=== PATIENT | female | born 1950 | race Caucasian/White ===

== ENCOUNTER → 2016-10-20 | Outpatient (CLI) | payer OTHER ==
[~2016-10-20] MED LIST: ASPI81TA28 PO; CALC200T PO; CEPH500C PO; CHOL200010 PO; CHOL20005 PO; DILT30TA PO; VITA10004 PO
--- NOTE | 2016-10-20 11:36 | DIAGNOSTIC IMAGING REPORT ---
RIGHT HAND MIN 3 VIEWS ROUTINE CLINICAL HISTORY: Right hand pain COMPARISON: None. DISCUSSION: The bones are mildly osteopenic. No acute fractures are visualized. There are erosive osteoarthritic changes at the level of the proximal to phalangeal joint of fourth finger and distal interphalangeal joint of the fifth finger. There are moderate osteoarthritic changes the level the first carpal metacarpal joint. IMPRESSION: 1. Erosive osteoarthritic changes 2. No acute fractures Electronically signed by: José Luis Madrigal M.D. 10/20/2016 11:35 AM
--- NOTE | 2016-10-20 11:40 | DIAGNOSTIC IMAGING REPORT ---
LEFT HAND MIN 3 VIEWS ROUTINE CLINICAL HISTORY: M19.90 Arthritis pain COMPARISON: None DISCUSSION: Severe degenerative change first carpometacarpal joint. Severe degenerative change proximal interphalangeal joint fourth finger. Erosive changes of the margins of the osseous structures involved. Mild degenerative change of all remaining osseous structures. No significant periarticular osteopenia. 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 Electronically signed by: Jemal Victoria M.D. 10/20/2016 11:38 AM
[2016-10-20 12:13] LABS: BASO % 0.8 %; BASO ABS # 0.05 K/uL (0-0.2); COMPLETE YES; EOS % 0.8 %; HEMATOCRIT 38.5 % (37-47); IG% 0.3 %; LYMPH % 35.3 %; LYMPH ABS # 2.09 K/uL (1.2-3.4); MEAN CELL VOLUME 89.7 fL (80-100); MEAN CORPUSCULAR HEMOGLOBIN 30.3 pg (25-34); MEAN CORPUSCULAR HGB CONC 33.8 g/dl (32-36); MEAN PLATELET VOLUME 9.8 fL (7.4-10.4); MONO % 7.9 %; NEUT % 54.9 %; PLATELET COUNT 275 K/uL (130-400); RED BLOOD COUNT 4.29 M/uL (4.2-5.4); WHITE BLOOD COUNT 5.92 K/uL (4.8-10.8)
[2016-10-20 12:24] LABS: ALT/SGPT 24 U/L (12-78); BLOOD UREA NITROGEN 10 mg/dl (7-18); BUN/CREATININE RATIO 14.6 (10-20); C-REACTIVE PROTEIN < 0.29 mg/dl (0-0.29); CALCIUM 9.4 mg/dl (8.5-10.1); CARBON DIOXIDE 29 mmol/L (21-32); CHLORIDE 103 mmol/L (98-107); GLUCOSE 66 mg/dl (70-99); POTASSIUM 3.8 mmol/L (3.5-5.1); RHEUMATOID FACTOR < 10.0 U/mL (0-15); SODIUM 139 mmol/L (136-145); URIC ACID 2.5 mg/dl (2.6-7.2)
[2016-10-20 12:33] LABS: ALB/GLOB RATIO 1.3 (0.9-2); ALKALINE PHOSPHATASE 54 U/L (45-117); AST/SGOT 29 U/L (15-37)
[2016-10-20 14:46] LABS: LYME DISEASE AB IGG NEG (NEG); LYME DISEASE AB IGM NEG (NEG)
[2016-10-22] LABS: CYCLIC CITRULLINATED PEPT IGG <16 UNITS (<20)
--- NOTE | 2016-10-28 09:18 | CODING QUERY MEDICAL NECESSITY ---
SUPPORTING DIAGNOSIS NEEDED A supporting diagnosis is required for the test/procedure performed on this patient in order for us to be reimbursed by the patient's insurance. Please provide a supporting diagnosis for the following test/procedure listed below next to the test name along with your signature. *If there is no additional diagnosis for this patient that would support the following test/procedure please document that below next to the test/procedure. Test(s)/Procedure(s) that require a supporting diagnosis: DOS 10/20 * Vitamin D DIAGNOSIS: * TSH DIAGNOSIS: Provider Signature: Date: Thank you Haven Marquez Health Information Management Once completed, please kindly fax back to [phone] For questions please call [phone]
== END | disposition home or self-care (01) ==
LOC: C.RAD 10:40
PROVIDERS: ATTEND Nurse Practitioner Family
DX: M19.90 Unspecified osteoarthritis, unspecified site (principal); M79.641 Pain in right hand

== ENCOUNTER → 2017-01-01 | Outpatient (CLI) | payer OTHER ==
[~2017-01-01] MED LIST changes: -CEPH500C PO
[2017-01-01 09:43] LABS: ALT/SGPT 20 U/L (12-78); BLOOD UREA NITROGEN 7 mg/dl (7-18); BUN/CREATININE RATIO 11.3 (10-20); CALCIUM 9.2 mg/dl (8.5-10.1); CARBON DIOXIDE 27 mmol/L (21-32); CHLORIDE 101 mmol/L (98-107); CHOLESTEROL 200 mg/dl (0-200); CREATININE 0.64 mg/dl (0.60-1.20); GLUCOSE 78 mg/dl (70-99); POTASSIUM 3.9 mmol/L (3.5-5.1); SODIUM 136 mmol/L (136-145); TRIGLYCERIDES 82 mg/dl (0-150); VERY LOW DENSITY LIPOPROT CALC 16 mg/dl
[2017-01-01 09:46] LABS: ALB/GLOB RATIO 1.6 (0.9-2); ALKALINE PHOSPHATASE 51 U/L (45-117); AST/SGOT 24 U/L (15-37); CHOLESTEROL/HDL RATIO 2.7; HDL CHOLESTEROL 73 mg/dl; LDL CHOLESTEROL CALCULATED 111 mg/dl
== END | disposition home or self-care (01) ==
LOC: C.LAB1850 08:01
PROVIDERS: ATTEND Nurse Practitioner Family
DX: E78.5 Hyperlipidemia, unspecified (principal)

== ENCOUNTER → 2017-01-11 | Outpatient (CLI) | payer OTHER ==
--- NOTE | 2017-01-11 14:27 | MAMMOGRAPHY REPORT ---
BILATERAL DIGITAL SCREENING MAMMOGRAM WITH CAD: 01/11/2017 CLINICAL HISTORY: Routine screening. Patient has no complaints. TECHNIQUE: Bilateral CC, MLO and repeat left MLO views were obtained. Current study was also evalua asael with a Computer Aided Detection (CAD) system. COMPARISON: Comparison is made to exams dated: 01/09/2016 mammogram, 01/04/2014 mammogram, 01/07/2015 mammogram, 01/03/2013 mammogram, 04/23/2011 mammogram, and 04/22/2010 mammogram - [facility] enter. BREAST COMPOSITION: The tissue of both breasts is heterogeneously dense, which may obscure small ma sses. FINDINGS: There are minimal vascular calcifications in the breasts. No suspicious mass, architectu ral distortion or cluster of suspicious microcalcifications is seen. IMPRESSION: ACR BI-RADS CATEGORY 1: NEGATIVE There is no mammographic evidence of malignancy. A 1 year screening mammogram is recommended. The p atient will receive written notification of the results. Approximately 10% of breast cancers are not detected with mammography. A negative mammographic repor t should not delay biopsy if a clinically suggestive mass is present. Neli Workman M.D. ay/:01/11/2017 13:15:36 Milling Machine Operator Gear: Marti GREEN(R)(M), [facility] letter sent: Normal 1/2 BI-RADS Code: ACR BI-RADS Category 1: Negative
== END | disposition home or self-care (01) ==
LOC: C.MAMM 09:31
PROVIDERS: ATTEND Family Medicine
DX: Z12.31 Encounter for screening mammogram for malignant neoplasm of breast (principal)

== ENCOUNTER 2017-02-04 08:08 | Observation (INO) | payer OTHER ==
[2017-02-04] VITALS (11 sets, daily range): BP systolic 101–143; BP diastolic 63–87; PULSE 48–81; TEMP 36.3–36.8; O2SAT 94–99; Ht 154.9 cm; Wt 48.0 kg
[~2017-02-04] VITALS: Ht 154.9 cm; Wt 48.0 kg
[~2017-02-04 08:08] MED LIST changes: -CHOL20005 PO
--- NOTE | 2017-02-04 11:27 | History & Physical Bridge Note ---
H&P Re-Evaluation Bridge Note: I have examined the patient, reviewed the History & Physical and in the interval since the performance of the History & Physical I have noted the following changes of clinical significance: No changes noted. I reviewed the indications, procedure, risks and alternatives of electrophysiology study and ablation with her and she understands and agrees to proceed. I included risks of possible pacemaker implantation as well as other risks. Consent obtained.
--- NOTE | 2017-02-04 11:27 | Procedure Note ---
Pre-Mod Sedation Assessment General Date of Moderate Sedation: Feb 04, 2017. Review Cardiovascular: regular rate, rhythm Abdomen: normal bowel sounds Lungs: lungs clear Pre-Sedation Airway Assessment Smoking Status: Never Smoker Procedure Planning Contraindications-for Mod Sed: None Yes Notes The planned sedation has been discussed with the patient and consent obtained. I have identified the patient, determined the appropriateness of sedation and have assessed the patient immediately prior to the procedure. All medicine(s) and interventions are by my order.
[2017-02-04] MEDS ORDERED: FENTANYL CITRATE INJ 50 MCG/1 ML 2 ML VIAL ONE ×2 (11:51→12:29)
[2017-02-04] MEDS ORDERED: MIDAZOLAM HCL 5 MG/ML 1 ML VIAL ONE ×2 (11:51→12:29)
[2017-02-04] MEDS ORDERED: IBUTILIDE FUMARATE 0.1 MG/ML 10 ML VIAL ONE (12:48)
[2017-02-04] MEDS ORDERED: ATROPINE SULFATE 0.1 MG/ML 10 ML SYR ONE (13:31)
--- NOTE | 2017-02-04 14:19 | Procedure Note ---
Post-Mod Sedation Assessment General Date of Moderate Sedation Feb 04, 2017. Vital Signs: Vital Signs Past 12 Hours Date Time Temp Pulse Resp B/P Pulse Ox O2 Delivery O2 Flow Rate FiO2 02/04/17 14:15 85 16 128/74 96 Room Air 02/04/17 14:10 88 16 130/88 96 Room Air 02/04/17 14:00 90 16 136/87 96 Room Air 02/04/17 13:50 113 16 111/87 96 Room Air 02/04/17 11:21 36.5 54 16 122/69 96 Room Air Review - Discharge Criteria Vital Signs Stable: Yes Alert/Oriented/Conversant: Yes Returned to Baseline Mental St: Yes Nausea Absent/Minimal: Yes Pain/Discomfort/Absent/Minimal: Yes Normal/Baseline Respirations: Yes Active Bleeding?: No
--- NOTE | 2017-02-04 14:22 | Cardiology Procedure Brief Nt ---
Preliminary Cardiology Note Procedure Date Feb 04, 2017. Pre-Procedure Diagnosis SVT Post-Procedure Diagnosis typical AV amrik reentry Procedure(s) Performed Baseline electrophysiologic study Corvert administration for atrial fibrillation Atropine administration for inducibility Ablation slow pathway Lumber Yard Worker Dr. Johnson Director Of Research(s) none Estimated Blood Loss 5 cc Preliminary Findings Typical AV amrik reentry, however induction was somewhat inconsistent and amrik pathways were not clearly evident. She also had easily inducible atrial fibrillation requiring Corvert. All of this makes the success of the procedure are little bit uncertain but ablation was performed. Recommendations Monitor overnight Specimens None Anesthesia local with sedation Complication(s) None Disposition PCU
[2017-02-04] MEDS ORDERED: KETOROLAC TROMETHAMINE 10 MG TAB PO PRN (14:30)
[2017-02-04] MEDS ORDERED: ACETAMINOPHEN 325 MG TAB PO PRN (14:30)
[2017-02-04] MEDS ORDERED: IV FLUIDS COMPLETED PRN (15:00)
[2017-02-05] VITALS: O2SAT 97
[2017-02-05 04:00] VITALS: BP 109/53; PULSE 52; TEMP 36.6; O2SAT 95
--- NOTE | 2017-02-05 08:49 | Discharge Instructions ---
Discharge Instructions Date of Service Feb 05, 2017. Admission Supraventricular tachycardia Discharge Discharge Diagnosis / Problem: SVT ablation Discharge Goals Goal(s): Improve disease control Activity Recommendations Activity Limitations: as noted below ACTIVITY RECOMMENDATIONS: * You may shower/bathe in 1 day. MEDICATIONS: * Tylenol, as directed, for discomfort. SPECIAL CARE INSTRUCTIONS: * If bleeding occurs, apply direct pressure to area for 5 minutes. * Call your doctor if you have severe pain, fever, drainage or bleeding at site. * Keep any scheduled doctor's appointment. SKIN IRRITATION: * You may experience some redness and/or swelling in the area where radiation was administered. If any skin irritation occurs, please contact your family physician. FOLLOW UP VISIT: 03/18/17 @ 10:[address] Johnson . Current Hospital Diet Patient's current hospital diet: Vegetarian Diet Discharge Diet Recommended Diet: Vegetarian Diet Pending Studies Studies pending at discharge: no Laboratory Results Lipid Panel Test 01/01/17 08:03 Range/Units Triglycerides Level 82 0-150 mg/dl Cholesterol Level 200 0-200 mg/dl HDL Cholesterol 73 mg/dl Cholesterol/HDL Ratio 2.7 LDL Cholesterol, Calculated 111 mg/dl Medical Emergencies . Who to Call and When: Medical Emergencies: If at any time you feel your situation is an emergency, please call 911 immediately. . Non-Emergent Contact Non-Emergency issues call your: Braiding Operator . . "Provider Documentation" section prepared by Neli Butler. . VTE Core Measure Inpt VTE Proph given/why not?: Treatment not indicated
[2017-02-05] MEDS ORDERED: ASPIRIN 81 MG ECTAB PO SCH (09:00)
[2017-02-05 10:01] VITALS: BP 109/53; PULSE 52; TEMP 36.6; O2SAT 95
--- NOTE | 2017-02-05 11:08 | Discharge Summary ---
Discharge Summary Admission Date: Feb 04, 2017 at 14:25 Discharge Date: Feb 05, 2017 Discharge Disposition: Home Primary Diagnosis: SVT Secondary Diagnoses/Problems: Medical Problems: (1) SVT (supraventricular tachycardia) Status: Acute Procedures: SVT ablation Discharge Instructions Last Recorded Wt (Kilograms): 48.000 Activity Recommendations: limitations as noted below Diet At Discharge: resume previous diet Allergies: Coded Allergies: Erythromycin (Unverified Allergy, Severe, NAUSEATED, 06/28/16) Additional Instructions: ACTIVITY RECOMMENDATIONS: * You may shower/bathe in 1 day. MEDICATIONS: * Tylenol, as directed, for discomfort. SPECIAL CARE INSTRUCTIONS: * If bleeding occurs, apply direct pressure to area for 5 minutes. * Call your doctor if you have severe pain, fever, drainage or bleeding at site. * Keep any scheduled doctor's appointment. SKIN IRRITATION: * You may experience some redness and/or swelling in the area where radiation was administered. If any skin irritation occurs, please contact your family physician. FOLLOW UP VISIT: Keep any scheduled doctor appointments. Special Care: Call your doctor if: * Temperature above 101 degrees * Pain not relieved by pain medicine ordered * There is increased drainage or redness from any incision * You have any unanswered questions or concerns. Avoid all tobacco products. If you need help to stop smoking, call [place]'s FREE QUITLINE at . This is a free call. Admission HPI This is a very pleasant 66-year-old woman who has a long history of palpitations although the cause was more recently identified. She describes a quite classic paroxysmal tachycardia, she believes this started about 10-15 years ago although when it first occurred it was infrequent and self terminating. The episodes however were quite long, typically they lasted hours, sometimes she will go to bed and it would disappear during the night and she would wake up in normal rhythm. She tolerated the arrhythmia quite well, she was aware of it and felt a little tired but did not have presyncope with it. More recently however the episodes have become more frequent and more difficult for her to tolerate. She had a prolonged episode on 03/21/2016, that lasted perhaps 4 hours and she wasn't feeling well so she came into the emergency room where on vital signs her heart rate is recorded as 126 bpm and her blood pressure was 116/76 when initially recorded. A 12-lead electrocardiogram was obtained which suggests typical AV amrik reentry and adenosine was used to terminate the arrhythmia (the actual termination doesn't appear to be recorded) . After termination her electrocardiogram was normal. She has tried medical therapy, after her visit to the emergency room in March 2016 she was started on metoprolol succinate which she did not tolerate at all, she felt very dizzy and had a headache with it. I believe this was switched to metoprolol tartrate with similar results. She was then started on diltiazem 15 mg twice a day (half of a 30 mg tablet) on 05/14/2016, this cause similar symptoms and she wasn't able to tolerated and discontinued it. She has continued to have episodes, she had 2 episodes in December, 1 was 1-2 hours and was not very bothersome to her. The other episode lasted about 4 hours , it was worse than some of her prior episodes and should considered coming to the emergency room but it was at a time of bad weather and she didn't want to have anyone bring her in. She didn't check her blood pressure with a cough and it was 106, the heart rate is probably erroneous although she did get 126 at one point during that arrhythmia. Otherwise she has no cardiovascular complaints. 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 She did have a stress echo done on 08/07/2016 where she reached 89 % of her predicted heart rate and it was negative for ischemia. Her baseline echo was unremarkable. Admission Physical Exam Additional Comments: Constitutional: Alert, cooperative and in no distress. HEENT: Unremarkable Neck: No jugular venous distention, carotid pulses are normal and equal bilaterally without bruits. Pulmonary: Clear to auscultation bilaterally. Cardiac: Regular rhythm with no murmur, gallop or rub. Abdomen: Soft, nontender with normal bowel sounds. Extremities: No edema. Distal pulses intact. Neurologic: No focal findings. Gait is steady. Skin: No rash, ecchymoses or petechiae. Hospital Course Patient is a 66-year-old female who underwent SVT ablation on 02/04/[address] Johnson. She tolerated the procedure well and was deemed stable for discharge home the following day. Her Diltiazem was discontinued prior to discharge. She will have follow-up in [address] Johnson as an outpatient. Total time spent on discharge = This includes examination of the patient, discharge planning, medication reconciliation, and communication with other providers.
--- NOTE | 2017-02-06 07:10 | Cardiology Follow-Up ---
Subjective Date of Service: Feb 05, 2017. Pt evaluation today including: conversation w/ patient, physical exam, lab review, review of studies, review of inpatient medication list History of Present Illness Doing well post-electrophysiologic procedure yesterday. Minor groin discomfort. Ambulating without difficulty. No chest discomfort or palpitations. Social History Smoking Status: Never Smoker History of Alcohol Use: No Review of Systems Respiratory: No dyspnea on exertion, No shortness of breath Cardiac: No chest pain, No palpitations Objective Last Recorded Weight-Kilograms: 48.000 Physical Exam Constitutional: General Apperance: heathly-appearing Level of Distress: NAD Lungs: Auscultation: breath sounds normal Cardiovascular: Heart Auscultation: RRR, no rubs Extremities: no edema Right and left groin access sites are clean and dry, no hematoma. Minor tenderness. Data EKG: Postprocedure sinus rhythm with normal UT interval. Telemetry reviewed: Sinus rhythm, no arrhythmia. Assessment and Plan #1. SVT: Doing well post-ablation, no groin difficulty evident, no arrhythmia. Stable for discharge to outpatient follow-up. Procedures: SVT ablation
== END 2017-02-05 10:38 | disposition home or self-care (01) ==
LOC: C.EP 08:08 → C.2T 14:25
PROVIDERS: ADMIT Internal Medicine Cardiovascular Disease; ATTEND Internal Medicine Cardiovascular Disease
DX: I47.1 Supraventricular tachycardia (principal); E78.5 Hyperlipidemia, unspecified; Z98.890 Other specified postprocedural states; Z79.82 Long term (current) use of aspirin; Z88.1 Allergy status to other antibiotic agents; Z82.3 Family history of stroke; Z82.49 Family history of ischemic heart disease and other diseases of the circulatory system; Z82.62 Family history of osteoporosis; Z83.42 Family history of familial hypercholesterolemia

== ENCOUNTER 2017-03-05 17:30 | Emergency (ER) | payer OTHER ==
[~2017-03-05] VITALS: Ht 154.9 cm; Wt 49.3 kg
[~2017-03-05 17:30] MED LIST changes: -DILT30TA PO
[2017-03-05 17:39] VITALS: TEMP 36.9; Ht 154.9 cm; Wt 49.3 kg
--- NOTE | 2017-03-05 17:59 | EMERGENCY ROOM VISIT NOTE ---
ED Visit Note First contact with patient: 17:44 I have personally seen and evaluated the patient with the physician product safety technical assistant. I agree with the diagnostic/management decisions and have personally been involved in these decisions and agree with the diagnosis.
[2017-03-05 18:09] VITALS: BP 131/69; PULSE 71; O2SAT 98
--- NOTE | 2017-03-06 15:15 | EMERGENCY ROOM VISIT NOTE ---
ED Visit Note First contact with patient: 17:44 Chief Complaint: Tick bite. History of Present Illness: Ms. Conteh is a 66-year-old white female who ambulates into the ED complaining of a tick bite over the left temporal area. She reports she noticed reddish lesion on Wednesday, 4 days ago. She initially thought it could be a tick bite or Lyme's disease related lesion; she reports she never saw a tick. Over the last 4 days she reports she thinks the lesion is becoming larger. She expressed concern to her who encouraged her to come to the ED for further evaluation and care. Patient reports she is not having any symptoms associated with this lesion. She has not had a taken any medication for this lesion. She denies any other similar lesions, fevers, chills, sweats, headaches, chest pain, shortness of breath, abdominal pain, nausea, vomiting, decreased appetite, joint pains. Review of Systems: As noted above in history of present illness. 8 body systems were reviewed and found to be negative as noted above. Past Medical History: Gastric ulcers, SVT, status post unspecified cyst removal and unspecified knee surgery. Current Medications: Allergies to Medications: Social History: Patient is currently retired and lives with her ; she feels safe in her home environment; she denies tobacco and alcohol use. Physical Examination: Vital Signs: Date Time Temp Pulse Resp B/P Pulse Ox O2 Delivery O2 Flow Rate FiO2 03/05/17 17:39 36.9 71 16 131/69 98 Room Air GENERAL: 66-year-old female in no acute distress, nontoxic-appearing, afebrile and hemodynamically stable. NEUROLOGICAL: Awake, alert and oriented to person, place and time. Answering questions appropriately and following commands. Normal gait. Good hand eye coordination. SKIN: Warm, dry and pink. Left Temporal Area: Patient has a 4-5 mm round mildly erythematous lesion that does not shabbir. It is slightly elevated consistent with a papule. There is no local erythema or edema. There is no lymphangitis. Lesion is not fluctuant. THORAX: Lungs sounds are clear to auscultation and equal bilaterally with symmetrical chest wall. ABDOMEN: Flat, soft and nontender. Positive bowel sounds in all quadrants. ED Course: Patient is assessed as noted above. Patient's case was reviewed with Dr. Delgadillo; we agreed on diagnostic approach, treatment, disposition and plan. Patient was educated about today's findings and instructed on her treatment plan ; she verbalizes understanding and agreement with this plan. Clinical Impression: Skin lesion to the face. Decision-Making: Initially my differential diagnosis I considered benign macro/ papule, skin cancer, insect bite and other causes. Disposition: Patient discharged home in stable condition; prior to departure she was reassessed and still reported she was pain and symptom-free. Plan: Patient was encouraged to continue to monitor her skin lesion. Patient was encouraged to contact her primary care provider for recheck. Patient was encouraged to return to the ED if the lesion enlarges, becomes more reddened or swollen, she develops fevers or other rashes to return to the ED.
== END 2017-03-05 18:09 | disposition home or self-care (01) ==
LOC: C.EDB 17:30 → C.EDD 18:09
DX: L98.9 Disorder of the skin and subcutaneous tissue, unspecified (principal)

== ENCOUNTER 2017-03-11 22:21 | Emergency (ER) | payer OTHER ==
[~2017-03-11] VITALS: Ht 154.9 cm; Wt 47.9 kg
[2017-03-11 22:30] VITALS: TEMP 36.6; Ht 154.9 cm; Wt 47.9 kg
[2017-03-11] MEDS ORDERED: DOXYCYCLINE HYCLATE 100 MG CAP PO STA (23:00)
[2017-03-11] MEDS ORDERED: CHOL20005 PO (23:06)
[2017-03-11 23:20] VITALS: BP 143/85; PULSE 63; O2SAT 100
--- NOTE | 2017-03-11 23:23 | EMERGENCY ROOM VISIT NOTE ---
History First contact with patient: 22:41 Chief Complaint: BITE Stated Complaint: TICK ON CALF OF LEFT LEG History of Present Illness The patient is a 66 year old female who presents to the Emergency Room with complaints of a tick bite. The tick is currently located over the lateral surface of the patients left ankle. The patient was outside yesterday until approximately 4pm and was gardening and outdoors for the majority of the day. She did not notice the tick this morning but does admit that she was rushing. Denies any pain in the area of the tick bite. Denies any fever, chills, headache , cough, or abdominal pain. Last tetanus shot was in 2016. Review of Systems See HPI for pertinent positives and negatives. A total of ten systems were reviewed and were otherwise negative. Past Medical/Surgical History Medical Problems: (1) Knee surgery (2) Paroxysmal SVT (supraventricular tachycardia) Family History FH: heart disease FHx: gallbladder disease Hypertension Social History Smoking Status: Never Smoker Alcohol Use: none Drug Use: none Marital Status: , in relationship Housing Status: lives with family Occupation Status: retired Current/Historical Medications Scheduled Aspirin (Aspirin Ec), 81 MG PO DAILY Calcium Carbonate-Vitamin D (Oscal 500/200 D-3), 2 TABS PO AMPM Cholecalciferol (Vitamin D3), 2,000 UNITS PO DAILY Vitamin E (Vitamin E), 2,000 INTER.UNIT PO DAILY Allergies Coded Allergies: Erythromycin (Verified Allergy, Severe, NAUSEATED, 03/11/17) Physical Exam Vital Signs Date Time Temp Pulse Resp B/P Pulse Ox O2 Delivery O2 Flow Rate FiO2 03/11/17 22:30 36.6 59 16 148/73 99 Room Air Physical Exam GENERAL: Awake, alert, well-appearing, in no distress, laying on stretcher HENT: Normocephalic, atraumatic. EYES: Normal conjunctiva. Sclera non-icteric. NECK: Supple. No nuchal rigidity. RESPIRATORY: Clear to auscultation. CARDIAC: Regular rate, normal rhythm. Extremities warm and well perfused. Pulses equal. ABDOMEN: Soft, non-distended. No tenderness to palpation. No rebound or guarding. No masses. RECTAL: Deferred. MUSCULOSKELETAL: Chest examination reveals no tenderness. The back is symmetrical on inspection without obvious abnormality. LOWER EXTREMITIES: Calves are equal size bilaterally and non-tender. No edema. 2mm ticket over the left ankle with minimal level of erythema surrounding the tick. Tick does not appear engorged. Tick removed without need of tick remover and no visible parts of the tick remained in the wound. NEURO: Normal sensorium. No sensory or motor deficits noted. SKIN: No rash or jaundice noted. Medical Decision & Procedures Medications Administered Medications (Trade) Dose Ordered Sig/Dalila Route Start Time Stop Time Status Last Admin Dose Admin Doxycycline Hyclate (Vibramycin Cap) 200 mg NOW STAT PO 03/11/17 23:00 03/11/17 23:01 DC 03/11/17 23:00 200 MG Medical Decision Patient is a 66 year old with a tick bite - Tick removed fairly easily without the need for using any medical assistant supervisor devices - No tick remnants remained in the wound - Patient given 200mg Doxycycline as Lyme prophylaxis - Patient instructed to follow up with PCP in 4-6 weeks and continue to watch skin for any rashes Impression Primary Impression: Tick bite Departure Information Dispostion Home / Self-Care Condition GOOD Referrals No Doctor, Assigned (PCP) Patient Instructions [facility] Health Problem Qualifiers Primary Impression: Tick bite Encounter type: initial encounter Qualified Codes: W57.XXXA - Bitten or stung by nonvenomous insect and other nonvenomous arthropods, initial encounter
--- NOTE | 2017-03-11 23:24 | EMERGENCY ROOM VISIT NOTE ---
History Report prepared by Luci: Zoe Newell Under the Supervision of: Dr. Zuhair Gloria M.D. First contact with patient: 22:41 Chief Complaint: BITE Stated Complaint: TICK ON CALF OF LEFT LEG History of Present Illness The patient is a 66 year old female who presents to the Emergency Room with complaints of a tick on her left ankle. She states that she was outside about 30 hours ago and did not notice anything when she put her socks on. She denies abdominal pain or SOB. There is a little redness around the tick bite. Her tetanus shot is current. Source of History: patient (around 30 hours ago) Position: ankle Quality: other (tick bite ) Associated Symptoms: No SOB, No abdominal pain Review of Systems See HPI for pertinent positives & negatives. A total of 10 systems reviewed and were otherwise negative. Past Medical & Surgical Medical Problems: (1) Knee surgery (2) Paroxysmal SVT (supraventricular tachycardia) Family History FH: heart disease FHx: gallbladder disease Hypertension Social History Smoking Status: Never Smoker Alcohol Use: none Drug Use: none Marital Status: , in relationship Housing Status: lives with family Occupation Status: retired Current/Historical Medications Scheduled Aspirin (Aspirin Ec), 81 MG PO DAILY Calcium Carbonate-Vitamin D (Oscal 500/200 D-3), 2 TABS PO AMPM Cholecalciferol (Vitamin D3), 2,000 UNITS PO DAILY Vitamin E (Vitamin E), 2,000 INTER.UNIT PO DAILY Allergies Coded Allergies: Erythromycin (Verified Allergy, Severe, NAUSEATED, 03/11/17) Physical Exam Vital Signs Date Time Temp Pulse Resp B/P Pulse Ox O2 Delivery O2 Flow Rate FiO2 03/11/17 23:20 63 16 143/85 100 03/11/17 22:30 36.6 59 16 148/73 99 Room Air Physical Exam GENERAL: lying on stretcher, no distress. NEURO: awake and oriented x3, moving all extremities. SKIN: small tick embedded in the left lateral distal leg, no surrounding cellulitis. Medical Decision & Procedures Medications Administered Medications (Trade) Dose Ordered Sig/Dalila Route Start Time Stop Time Status Last Admin Dose Admin Doxycycline Hyclate (Vibramycin Cap) 200 mg NOW STAT PO 03/11/17 23:00 03/11/17 23:01 DC 03/11/17 23:00 200 MG ED Course 2242: The patient was evaluated in room B3. A complete history and physical exam was performed. 2300: Ordered Vibramycin Cap 200 mg PO. 2320:Reevaluated the patient. Discussed results and discharge instructions: She verbalized understanding and agreement. The patient is ready for discharge. Medical Decision The patient presents with a tick along her left lateral leg. It has been there for over 24 hours. The tick is not engorged, her tetanus is current. There is no cellulitis. As we were about to remove the tick, it suddenly just fell off. The patient was happy without the need for intervention. The patient was given oral doxycycline. She was warned about the possibility of conversion to Lyme disease. She can return here for worsening symptoms. Impression Primary Impression: Tick bite Scribe Attestation The scribe's documentation has been prepared under my direction and personally reviewed by me in its entirety. I confirm that the note above accurately reflects all work, treatment, procedures, and medical decision making performed by me. Departure Information Dispostion Home / Self-Care Referrals No Doctor, Assigned (PCP) Forms HOME CARE DOCUMENTATION FORM, IMPORTANT VISIT INFORMATION Patient Instructions My [facility] Additional Instructions - You had a tick bite and were treated with 200mg of Doxycycline in the Emergency Department as antibiotic prophylaxis - Follow up with your family doctor in 4-6 weeks to have lyme testing done - If you have any symptoms such as fever, flu like symptoms, rash on your leg, or rash anywhere else on your body please be seen by a doctor immediately Problem Qualifiers Primary Impression: Tick bite Encounter type: initial encounter Qualified Codes: W57.XXXA - Bitten or stung by nonvenomous insect and other nonvenomous arthropods, initial encounter
== END 2017-03-11 23:25 | disposition home or self-care (01) ==
LOC: C.EDB 22:21 → C.EDC 23:25
DX: S90.562A Insect bite (nonvenomous), left ankle, initial encounter (principal); W57.XXXA Bitten or stung by nonvenomous insect and other nonvenomous arthropods, initial encounter; Z82.49 Family history of ischemic heart disease and other diseases of the circulatory system; Z79.82 Long term (current) use of aspirin; Z79.899 Other long term (current) drug therapy

== ENCOUNTER → 2017-04-05 | Outpatient (CLI) | payer OTHER ==
[~2017-04-05] MED LIST changes: -CHOL200010 PO; +CHOL20005 PO
[2017-04-05 13:16] LABS: LYME DISEASE AB IGG NEG (NEG)
[2017-04-05 13:19] LABS: LYME DISEASE AB IGM NEG (NEG)
== END | disposition home or self-care (01) ==
LOC: C.LAB1850 08:05
PROVIDERS: ATTEND Nurse Practitioner Family
DX: T14.8 Other injury of unspecified body region (principal); W57.XXXA Bitten or stung by nonvenomous insect and other nonvenomous arthropods, initial encounter

== ENCOUNTER 2017-04-12 19:19 | Emergency (ER) | payer OTHER ==
[~2017-04-12] VITALS: Ht 154.9 cm; Wt 49.0 kg
[2017-04-12 19:36] VITALS: TEMP 36.7; Ht 154.9 cm; Wt 49.0 kg
--- NOTE | 2017-04-12 22:15 | DIAGNOSTIC IMAGING REPORT ---
RIGHT FOREARM ULTRASOUND CLINICAL HISTORY: R forearm lump; spontaneous, painful Right COMPARISON STUDY: None. FINDINGS: Within the subcutaneous soft tissues of the right posterior forearm there is a 1.0 x 0.9 x 0.3 cm hypoechoic circumscribed nodule. IMPRESSION: A nonspecific 1.0 x 0.3 x 0.9 cm hypoechoic nodule within the subcutaneous soft tissues of the right posterior forearm. Electronically signed by: Benedicto Han M.D. 04/12/2017 10:14 PM Dictated Date/Time: 04/12/2017 10:12 PM
--- NOTE | 2017-04-12 22:18 | EMERGENCY ROOM VISIT NOTE ---
ED Visit Note First contact with patient: 19:48 I have seen and examined this patient with Leonel Martínez and generally agree with the treatment plan as discussed. Problem List Medical Problems: (1) Knee surgery Status: Resolved Current/Historical Medications Scheduled Aspirin (Aspirin Ec), 81 MG PO DAILY Calcium Carbonate-Vitamin D (Oscal 500/200 D-3), 2 TABS PO AMPM Cholecalciferol (Vitamin D3), 2,000 UNITS PO DAILY Allergies Coded Allergies: Erythromycin (Verified Allergy, Severe, NAUSEATED, 03/11/17) Vital Signs Date Time Temp Pulse Resp B/P (MAP) Pulse Ox O2 Delivery O2 Flow Rate FiO2 04/12/17 21:28 58 20 133/78 96 Room Air 04/12/17 19:36 36.7 61 20 158/77 97 Room Air Departure Information Referrals Mario Phelan III, CRNP (PCP) Patient Instructions My [facility] [address]
[2017-04-12 22:38] VITALS: BP 145/81; PULSE 61; O2SAT 98
--- NOTE | 2017-04-13 01:20 | EMERGENCY ROOM VISIT NOTE ---
ED Visit Note First contact with patient: 19:48 Chief Complaint: Right arm pain and swelling. History of Present Illness: Ms. Conteh is a 66-year-old white female who ambulates into the ED complaining of right forearm pain and swelling. Patient reports she was working out in her garden earlier this morning. Then she reports approximately 2 PM she was driving and had an acute onset of severe mid posterior right forearm pain. When she looked in the area there was a large amount of swelling and it was tender. She reports her onset of pain was described as a burning sensation. At that time her pain was rated 6/10. It was nonradiating. Her pain worsened with palpation. Since that time her pain has decreased and now she rates her discomfort 3/10. She has noted increased in swelling in the area. The lesion continues to be tender to palpation. She has not taken any medications for her discomfort prior to arrival at the hospital. She has no associated symptoms including fevers, chills, sweats, other skin eruptions, other skin color changes, upper respiratory tract symptoms, cough, wheezing, shortness of breath, chest pain, palpitations, abdominal pain, decreased appetite, nausea/vomiting, extremity weakness/numbness/tingling. Review of Systems: As noted above in history of present illness. All body systems were reviewed and found to be negative as noted above. Past Medical History: Ulcers, unspecified knee surgery, arrhythmia ablation. Current Medications: Calcium with vitamin D, aspirin, vitamin D3. Allergies to Medications: Erythromycin. Social History: Patient is not employed; she lives with her spouse and feels safe in her home environment; she denies tobacco and alcohol use. Physical Examination: Vital Signs: Date Time Temp Pulse Resp B/P (MAP) Pulse Ox O2 Delivery O2 Flow Rate FiO2 04/12/17 22:38 61 20 145/81 98 04/12/17 21:28 58 20 133/78 96 Room Air 04/12/17 19:36 36.7 61 20 158/77 97 Room Air GENERAL: 66-year-old female in mild distress due to pain, nontoxic-appearing, afebrile and hemodynamically stable. NEUROLOGICAL: Awake, alert and oriented to person, place and time. Answering questions appropriately and following commands. Normal gait. Good hand eye coordination. No focal motor sensory deficits. SKIN: Warm, dry and pink. Right Forearm: Over the posterior aspect of the midforearm patient has a 4-5 cm lump. The central portion of this approximately 1 cm and is firm to touch and mildly tender. There is a surrounding 4 cm area of swollen tissue. This area is not erythematous and does not appear cellulitic. There is no lymphangitis. HEENT: Atraumatic and normocephalic. PERRLA. Sclera white and conjunctiva pink. No drainage from naris. Oral cavity moist and pink. Pharynx is nonerythematous or edematous. Speech normal. No lymphadenopathy. Trachea midline. No jugular venous distention. THORAX: Lungs sounds are clear to auscultation and equal bilaterally with symmetrical chest wall. No wheezing, rales or rhonchi. No crepitus, tenderness , subcutaneous air or deformities noted. HEART: Regular rate and rhythm. No gallops, rubs or murmurs are appreciated. ABDOMEN: Flat, soft and nontender. Positive bowel sounds in all quadrants. No guarding, rigidity or organomegaly. RIGHT UPPER EXTREMITY: Lesion as noted above in SKIN. No tenderness over the shoulder, humerus, elbow, wrist or hand. No other skin color changes or lumps. Full range of motion of the shoulder, elbow, forearm or wrist. Distal neurovascular statuses are intact with good pulses and sensation to light touch. Capillary refill is brisk. ED Course: Patient is assessed as noted above. Patient's medication list was reviewed. Right Forearm ultrasound: Was reviewed by myself and read by the radiologist showing a nonspecific 1.0 x 0.3 x 0.9 cm hypocholic nodule within the subcutaneous soft tissues of the posterior right forearm. Patient was offered pain medication and refused. Patient was reassessed multiple times during her stay in the emergency department. Patient's case was reviewed with Dr. Saab; he independently assessed the patient we agreed on diagnostic approach, treatment, disposition and plan. Patient was educated about christian[facility]'s findings and instructed on her treatment plan; she verbalizes understanding and agreement with this plan. Clinical Impression: Posterior right forearm nodule. Decision-Making: Initially my differential diagnosis I considered hematoma, early abscess, foreign body, insect bite, and other causes. Disposition: Patient discharged home in stable condition; prior to departure she was reassessed and subjectively reported she was feeling better and rated her discomfort 2/10. Plan: Comfort measures were discussed with the patient including the use of acetaminophen and ice. Patient was educated on signs of infection. Patient was encouraged to follow-up with her PCP for recheck in 3-6 days. Patient was encouraged return to the ED for increasing pain and swelling around the nodule, signs of infection, fevers or any new/concerning symptoms.
== END 2017-04-12 22:44 | disposition home or self-care (01) ==
LOC: C.EDB 19:19 → C.EDA 22:44
DX: R22.31 Localized swelling, mass and lump, right upper limb (principal); Z79.82 Long term (current) use of aspirin

== ENCOUNTER → 2018-01-13 | Outpatient (CLI) | payer OTHER ==
[~2018-01-13] MED LIST changes: -VITA10004 PO
--- NOTE | 2018-01-14 07:20 | MAMMOGRAPHY REPORT ---
BILATERAL DIGITAL SCREENING MAMMOGRAM TOMOSYNTHESIS WITH CAD: 01/13/2018 CLINICAL HISTORY: Routine screening. TECHNIQUE: Breast tomosynthesis in addition to standard 2D mammography was performed. Current study was also evaluated with a Computer Aided Detection (CAD) system. COMPARISON: Comparison is made to exams dated: 01/11/2017 mammogram, 01/09/2016 mammogram, 01/07/2015 m ammogram, 01/04/2014 mammogram, 01/03/2013 mammogram, and 04/23/2011 mammogram - [facility] nter. BREAST COMPOSITION: The tissue of both breasts is heterogeneously dense, which may obscure small mas ses. FINDINGS: No suspicious masses, calcifications, or areas of architectural distortion are noted in ei ther breast. There has been no significant interval change compared to prior exams. IMPRESSION: ACR BI-RADS CATEGORY 1: NEGATIVE There is no mammographic evidence of malignancy. A 1 year screening mammogram is recommended. The pa tient will receive written notification of the results. Approximately 10% of breast cancers are not detected with mammography. A negative mammographic report should not delay biopsy if a clinically suggestive mass is present. Carleen Stokes M.D. ah/:01/13/2018 13:42:12 [employer] Superintendent: Marti GREEN(Don)(M), [facility] letter sent: Normal 1/2 BI-RADS Code: ACR BI-RADS Category 1: Negative
== END | disposition home or self-care (01) ==
LOC: C.MAMM 08:36
PROVIDERS: ATTEND Nurse Practitioner Family
DX: Z12.31 Encounter for screening mammogram for malignant neoplasm of breast (principal)

== ENCOUNTER → 2018-03-09 | Outpatient (CLI) | payer OTHER ==
--- NOTE | 2018-03-09 11:54 | DIAGNOSTIC IMAGING REPORT ---
CERVICAL SPINE 2 OR 3 VIEWS CLINICAL HISTORY: Acute neck pain. No recent trauma. COMPARISON STUDY: No previous studies for comparison. FINDINGS: No fracture or suspicious lesion is identified. There is minimal anterolisthesis of C4 on C5 and minimal retrolisthesis of C5 on C6. There is mild disc space narrowing at C5-C6. There is mild multilevel facet arthrosis. IMPRESSION: 1. No acute cervical spine fracture or subluxation. 2. Mild disc space narrowing at C5-C6 and mild multilevel facet arthrosis. Electronically signed by: Johann Chirinos M.D. 03/09/2018 11:53 AM Dictated Date/Time: 03/09/2018 11:51 AM
--- NOTE | 2018-03-09 12:47 | DIAGNOSTIC IMAGING REPORT ---
THORACIC SPINE 3 VIEWS HISTORY: ACUTE NECK PAIN COMPARISON: None. FINDINGS: There is no fracture. No subluxation. 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 The bones are osteopenic. IMPRESSION: No fracture or subluxation within the thoracic spine. Electronically signed by: Benedicto Han M.D. 03/09/2018 12:45 PM Dictated Date/Time: 03/09/2018 12:17 PM
== END | disposition home or self-care (01) ==
LOC: C.RAD 11:12
PROVIDERS: ATTEND Nurse Practitioner Family
DX: M54.2 Cervicalgia (principal)

== ENCOUNTER → 2018-06-06 | Outpatient (CLI) | payer OTHER ==
[2018-06-06 15:59] LABS: BASO % 0.7 %; BASO ABS # 0.06 K/uL (0-0.2); EOS % 1.2 %; HEMATOCRIT 40.5 % (37-47); HEMOGLOBIN 13.5 g/dL (12.0-16.0); IG# 0.01 K/uL (0.00-0.02); LYMPH % 33.2 %; LYMPH ABS # 2.75 K/uL (1.2-3.4); MEAN CELL VOLUME 91.4 fL (80-100); MEAN CORPUSCULAR HEMOGLOBIN 30.5 pg (25-34); MEAN CORPUSCULAR HGB CONC 33.3 g/dl (32-36); MEAN PLATELET VOLUME 10.2 fL (7.4-10.4); MONO ABS # 0.66 K/uL (0.11-0.59); NEUT % 56.8 %; NEUT ABS # 4.71 K/uL (1.4-6.5); PLATELET COUNT 314 K/uL (130-400); RED CELL DISTRIBUTION WIDTH CV 11.8 % (11.5-14.5); WHITE BLOOD COUNT 8.29 K/uL (4.8-10.8)
[2018-06-06 16:21] LABS: ALKALINE PHOSPHATASE 69 U/L (45-117); ALT/SGPT 25 U/L (12-78); AST/SGOT 24 U/L (15-37); BLOOD UREA NITROGEN 9 mg/dl (7-18); CALCIUM 8.9 mg/dl (8.5-10.1); CARBON DIOXIDE 27 mmol/L (21-32); CREATININE 0.72 mg/dl (0.60-1.20); GLUCOSE 81 mg/dl (70-99); POTASSIUM 3.7 mmol/L (3.5-5.1); SODIUM 134 mmol/L (136-145); TOTAL PROTEIN 7.3 gm/dl (6.4-8.2)
== END | disposition home or self-care (01) ==
LOC: C.LAB1850 14:23
PROVIDERS: ATTEND Physician Assistant
DX: I47.1 Supraventricular tachycardia (principal)